=== PATIENT | male | born 1950 | race Caucasian/White ===

== ENCOUNTER 2022-10-25 01:08 | Emergency (ER) | payer MEDICARE, BC ==
[~2022-10-25] VITALS: Ht 172.7 cm; Wt 82.6 kg
[2022-10-25 02:06] VITALS: BP 122/65; TEMP 97.2; O2SAT 98
== END 2022-10-25 02:07 | disposition home or self-care (01) ==
LOC: ER 01:17
DX: S80.11XA Contusion of right lower leg, initial encounter (principal); I25.2 Old myocardial infarction; X58.XXXA Exposure to other specified factors, initial encounter; Y93.89 Activity, other specified; Y92.89 Other specified places as the place of occurrence of the external cause; Y99.8 Other external cause status
CPT/HCPCS: 73590; A4663